=== PATIENT | female | born 2000 | race Asian ===

== ENCOUNTER 2021-08-02 16:10 | Emergency (ER) | payer OTHER ==
[~2021-08-02] VITALS: Ht 162.6 cm; Wt 90.7 kg
[2021-08-02 16:29] VITALS: BP 119/86
[2021-08-02] MEDS ORDERED: LANTUS SUBQ (16:32)
[2021-08-02] MEDS ORDERED: MUPIROCIN15 GM TOP (17:41)
== END 2021-08-02 18:21 | disposition home or self-care (01) ==
LOC: ER 16:10
DX: L60.0 Ingrowing nail (principal); Z79.4 Long term (current) use of insulin